=== PATIENT | female | born 1950 | race Caucasian/White ===

== ENCOUNTER 2019-01-17 10:07 | Emergency (ER) | payer SELFPAY ==
[2019-01-17 10:29] VITALS: TEMP 9.2; O2SAT 98
[2019-01-17 11:08] LABS: BASO % 0.3 % (0.0-2.0); EOS % 0.1 % (0.0-4.0); HEMOGLOBIN 12.8 g/dL (11.0-16.0); LYMPH # 1.1 K/uL (1.0-4.3); LYMPH % 27.6 % (20.0-40.0); MEAN CELL VOLUME 85.5 fL (81.0-99.0); MEAN CORPUSCULAR HEMOGLOBIN 27.7 pg (27.0-31.0); MEAN CORPUSCULAR HGB CONC 32.4 g/dL (33.0-37.0); MEAN PLATELET VOLUME 9.3 fL (7.2-11.7); MONO # 0.3 K/uL (0.0-0.8); MONO % 7.7 % (0.0-10.0); NEUT # 2.5 K/uL (1.8-7.0); NEUT % 64.3 % (50.0-75.0); NRBC % 0.1 % (0.0-2.0); RBC 4.64 Mil/uL (3.80-5.20); RED CELL DISTRIBUTION WIDTH 14.4 % (11.5-14.5); WHITE BLOOD COUNT 3.8 K/uL (4.8-10.8)
[2019-01-17 11:30] LABS: ALB/GLOB RATIO 1.2 (1.0-2.1); ALBUMIN 4.4 g/dL (3.5-5.0); ALT/SGPT 28 U/L (9-52); AST/SGOT 29 U/L (14-36); BLOOD UREA NITROGEN 13 mg/dL (7-17); CALCIUM 9.4 mg/dl (8.6-10.4); GFR NON-AFRICAN AMERICAN > 60; LIPASE 100 U/L (23-300)
--- NOTE | 2019-01-17 11:51 | C.PDOC ---
History Of Present Illness 68 year old female presents to the ED for evaluation of epigastric discomfort for 3 months. The patient reports when eating, the food gets stuck for a few seconds before passing. She notes she is from [place] where an endoscopy was pe rformed that showed epigastric reflux. Denies chest pain, shortness of breath, nausea, vomiting, and any other associated symptoms. Time Seen by Provider: 01/17/19 10:43 Chief Complaint (Nursing): Abdominal Pain History Per: Patient History/Exam Limitations: no limitations Onset/Duration Of Symptoms: Days (x3 months) Current Symptoms Are (Timing): Still Present Location Of Pain/Discomfort: Epigastric Associated Symptoms: denies: Nausea, Vomiting Recent travel outside of the [place]: No Past Medical History Reviewed: Historical Data, Nursing Documentation, Vital Signs Vital Signs: Last Vital Signs Temp 9.2 F L 01/17/19 10:26 Pulse 71 01/17/19 10:26 Resp 16 01/17/19 10:26 BP 120/83 01/17/19 10:26 Pulse Ox 98 01/17/19 10:26 - Medical History PMH: Gastritis Family History: States: Unknown Family Hx - Social History Hx Alcohol Use: No Hx Substance Use: No Review Of Systems Except As Marked, All Systems Reviewed And Found Negative. Gastrointestinal: Positive for: Abdominal Pain Physical Exam - Physical Exam Appears: Non-toxic, No Acute Distress Skin: Warm, Dry Head: Atraumatic, Normacephalic Eye(s): bilateral: Normal Inspection, PERRL, EOMI Oral Mucosa: Moist Neck: Normal ROM Chest: Symmetrical, No Deformity Cardiovascular: Rhythm Regular, No Murmur Respiratory: Normal Breath Sounds, No Rales, No Rhonchi, No Wheezing Gastrointestinal/Abdominal: Normal Exam, Soft, No Tenderness Extremity: Bilateral: Atraumatic, Normal Color And Temperature, Normal ROM Neurological/Psych: Oriented x3, Normal Speech ED Course And Treatment - Laboratory Results Result Diagrams: 01/17/19 11:02 01/17/19 11:02 Lab Results: Total Bilirubin 0.6 mg/dL (0.2-1.3) 01/17/19 11:02 AST 29 U/L (14-36) 01/17/19 11:02 ALT 28 U/L (9-52) 01/17/19 11:02 Alkaline Phosphatase 94 U/L (38-126) 01/17/19 11:02 Total Protein 8.0 g/dL (6.3-8.3) 01/17/19 11:02 Albumin 4.4 g/dL (3.5-5.0) 01/17/19 11:02 Globulin 3.6 gm/dL (2.2-3.9) 01/17/19 11:02 Albumin/Globulin Ratio 1.2 (1.0-2.1) 01/17/19 11:02 Lipase 100 U/L (23-300) 01/17/19 11:02 ECG: Interpreted By Me, Viewed By Me ECG Rhythm: Sinus Rhythm Interpretation Of ECG: Normal interval. Normal axis. Q wave in lead II and AVF. Nonspecific T wave changes. Rate From EC O2 Sat by Pulse Oximetry: 98 - Other Rad CXR X-Ray: Viewed By Me, Read By Radiologist Interpretation: FINDINGS: LUNGS: No active pulmonary disease. PLEURA: No significant pleural effusion identified. No pneumothorax apparent. CARDIOVASCULAR: No aortic atherosclerotic calcification present. Normal cardiac size. No pulmonary vascular congestion. OSSEOUS STRUCTURES: No significant abnormalities. VISUALIZED UPPER ABDOMEN: Normal. OTHER FINDINGS: None. IMPRESSION: No active disease. Medical Decision Making Medical Decision Making: Initial plan: -EKG -Blood sent. -CXR -Protonix Progress/Update: Patient is stable for discharge home. Prescribed Protonix and advised to return if symptoms worsen. Disposition Counseled Patient/Family Regarding: Studies Performed, Diagnosis, Need For Followup, Rx Given - Disposition Referrals: Rico Bautista MD [Staff Provider] - Disposition: HOME/ ROUTINE Disposition Time: 11:47 Condition: STABLE Additional Instructions: follow up with gi doctor within 2 days call to make an appointment take medications as prescribed return to ER if symptoms worsens or progress Prescriptions: Pantoprazole Sodium [Protonix] 40 mg PO DAILY #20 ect Instructions: Acid Reflux (Gastroesophageal Reflux Disease), Adult (DC), Dyspepsia (DC) Forms: [facility] (Armenian), General Discharge Instructions - Clinical Impression Clinical Impression: Abdominal pain - Scribe Statement The provider has reviewed the documentation as recorded by the Scribe (Ada Cunningham) Provider Attestation: All medical record entries made by the Scribe were at my direction and persona lly dictated by me. I have reviewed the chart and agree that the record accurately reflects my personal performance of the history, physical exam, medical decision making, and the department course for this patient. I have also personally directed, reviewed, and agree with the discharge instructions and disposition.
[2019-01-17 12:07] VITALS: BP 116/79; PULSE 62; RESP 20
--- NOTE | 2019-01-17 17:11 | RAD ---
Date of service: 01/17/2019 HISTORY: abd pain COMPARISON: No prior. TECHNIQUE: Chest PA and lateral FINDINGS: LUNGS: No active pulmonary disease. PLEURA: No significant pleural effusion identified. No pneumothorax apparent. CARDIOVASCULAR: No aortic atherosclerotic calcification present. Normal cardiac size. No pulmonary vascular congestion. OSSEOUS STRUCTURES: No significant abnormalities. VISUALIZED UPPER ABDOMEN: Normal. OTHER FINDINGS: None. IMPRESSION: No active disease.
== END 2019-01-17 12:07 | disposition home or self-care (01) ==
LOC: C.ER 10:07
DX: R10.9 Unspecified abdominal pain (principal)
CPT/HCPCS: 71046; 80053; 83690; 85025; 93005; 96374; 99283; C9113